=== PATIENT | male | born 1960 | race Caucasian/White ===

== ENCOUNTER 2017-07-22 06:59 | Inpatient (IN) | payer OTHER ==
--- NOTE | 2017-07-22 07:14 | EDPHY ---
HPI/HX/ROS/PE/MDM Narrative: CHIEF COMPLAINT: Chest pain HPI: This patient is a 57 year old male arriving with his complaining of chest pain. At dinner yesterday evening, he began having heartburn-like symptoms after the main course, around 9:00pm. He excused himself to the bathroom, and developed cold sweats and nausea. These symptoms lasted about 30 minutes, then subsided. He had eaten a large meal of steak. When he arrived home later, his discomfort returned and he was unable to sleep. He had intermittent diaphoresis and nausea. Around 5am, he began to feel better, but one hour later, symptoms returned. He has not taken any medications for relief. He denies stomach pain or shortness of breath. His discomfort does not radiate anywhere. He endorses a feeling of "restlessness". He denies vomiting, diarrhea, fever, or other associated symptoms. The patient generally follows up with Dr. Knox, industrial organization manager, due to family cardiac history. About two weeks ago, he was running and had similar symptoms with a heartburn sensation and nausea. He was scheduled to follow up with Dr. Knox next week. His symptoms last night and today feel very similar to those during his exertion two weeks ago, so he presents for evaluation. He does take daily 81mg aspirin. REVIEW OF SYSTEMS: Aside from elements discussed in the HPI, a comprehensive 10-point review of systems was reviewed and is negative. PMH: Mild hyperlipidemia, not medicated. SOCIAL HISTORY: Works as a devops consultant. . at bedside. PHYSICAL EXAM: General:Patient is alert, in no acute distress. ENT:Eyes are normal to inspection. ENT inspection normal. Neck: Normal inspection. Full range of motion. Respiratory:No respiratory distress. Breath sounds normal bilaterally. Cardiovascular: Regular rate and rhythm. Strong peripheral pulses. Normal cap refill. Abdomen:The abdomen is nontender to palpation. There are no peritoneal signs. There are normal bowel sounds. Back: Normal to inspection. No tenderness to palpation. Skin: Normal color. No rash. Warm and dry. Extremities: Normal appearance. Full range of motion. Neuro: Oriented x3. Normal motor function. Normal sensory function. ED Course: 57 y/o male with family history of CAD, followed by Dr. Knox, presents with 10 hour history of intermittent chest pain, nausea, and diaphoresis. Exam unremarkable. Plan for EKG, chest x-ray, labs including CBC, chemistries, Troponin. 07:15 The 12 lead EKG was interpreted by myself. See hard copy and/or "tracemaster" electronic copy for interpretation. Sinus rhythm. T wave inversion in inferior leads. Concern for inferior myocardial ischemia. 07:50 Reviewed chest x-ray. Negative for acute processes. 08:01 Troponin elevated at 0.231. Laboratory studies otherwise unremarkable. Spoke with Dr. Sauer, industrial organization manager. Call schedule changed at 8:00, plan to consult with industrial organization manager adult basic education manager, Dr. Mullins. 08:05 Reassessed patient. Discussed results of EKG, labs. Plan for cardiology consult as above. Administered 325mg PO aspirin. 08:[address] Mullins, industrial organization manager. Plan for cardiac catheterization. Cath team paged by ED staff. 08:40 Dr. Mullins at bedside. 08:48 Per nurse, Dr. Mullins requests initiation of Heparin protocol. Patient transferred to airport maintenance laborer under the care of Dr. Mullins. - Data Points Imaging Results: Imaging Impressions Chest X-Ray 07/22/17 07:07 Impression: Clear lungs. No acute process. Imaging: I viewed and interpreted images myself Laboratory Results: Laboratory Results 07/22/17 07:26 07/22/17 07:26 07/22/1718 07/22/17 07:30 07:26 07:26 WBC 5.92 10^3/uL 10^3/uL (3.80-9.50) RBC 5.13 10^6/uL 10^6/uL (4.40-6.38) Hgb 17.1 g/dL g/dL (13.7-17.5) Hct 47.3 % % (40.0-51.0) MCV 92.2 fL fL (81.5-99.8) MCH 33.3 pg pg (27.9-34.1) MCHC 36.2 g/dL g/dL (32.4-36.7) RDW 12.4 % % (11.5-15.2) Plt Count 202 10^3/uL 10^3/uL (150-400) MPV 9.9 fL fL (8.7-11.7) Neut % (Auto) 63.4 % % (39.3-74.2) Lymph % (Auto) 26.9 % % (15.0-45.0) [place] % (Auto) 7.8 % % (4.5-13.0) Eos % (Auto) 1.0 % % (0.6-7.6) Baso % (Auto) 0.7 % % (0.3-1.7) Nucleat RBC Rel Count 0.0 % % (0.0-0.2) Absolute Neuts (auto) 3.76 10^3/uL 10^3/uL (1.70-6.50) Absolute Lymphs (auto) 1.59 10^3/uL 10^3/uL (1.00-3.00) Absolute Monos (auto) 0.46 10^3/uL 10^3/uL (0.30-0.80) Absolute Eos (auto) 0.06 10^3/uL 10^3/uL (0.03-0.40) Absolute Basos (auto) 0.04 10^3/uL 10^3/uL (0.02-0.10) Absolute Nucleated RBC 0.00 10^3/uL 10^3/uL (0-0.01) Immature Gran % 0.2 % % (0.0-1.1) Immature Gran # 0.01 10^3/uL 10^3/uL (0.00-0.10) PT 13.0 SEC SEC (12.0-15.0) INR 0.96 (0.83-1.16) APTT 32.0 SEC SEC (23.0-38.0) Sodium 144 mEq/L mEq/L (135-145) Potassium 4.1 mEq/L mEq/L (3.5-5.2) Chloride 109 mEq/L mEq/L (97-110) Carbon Dioxide 20 mEq/l L mEq/l (22-31) Anion Gap 15 mEq/L mEq/L (8-16) BUN 13 mg/dL mg/dL (7-23) Creatinine 0.8 mg/dL mg/dL (0.7-1.3) Estimated GFR > 60 Glucose 102 mg/dL H mg/dL (70-100) Calcium 9.2 mg/dL mg/dL (8.5-10.4) Troponin I 0.231 ng/mL H ng/mL (0.000-0.034) Medications Given: Discontinued Medications Aspirin (Aspirin) 324 mg PO EDNOW ONE Stop: 07/22/17 08:17 Last Admin: 07/22/17 08:32 Dose: 324 mg Heparin Sodium (Porcine) (Heparin Injection) 0 unit IVP EDNOW ONE PRN Reason: Protocol Stop: 07/22/17 08:50 Last Admin: 07/22/17 09:22 Dose: 4,800 units Heparin Sodium (Porcine) (Heparin 50 Units/Ml (Premix)) 500 mls @ 0 mls/hr IV EDNOW ONE; Per Protocol PRN Reason: Protocol Stop: 07/22/17 08:50 Last Admin: 07/22/17 09:23 Dose: 500 mls General Time Seen by Provider: 07/22/17 07:07 Initial Vital Signs: Initial Vital Signs Temperature (C) 36.3 C 07/22/17 07:04 Heart Rate 56 L 07/22/17 07:04 Respiratory Rate 17 07/22/17 07:04 Blood Pressure 147/93 H 07/22/17 07:04 O2 Sat (%) 96 07/22/17 07:04 O2 Delivery Mode Nasal Cannula O2 (L/minute) 1 Allergies/Adverse Reactions: No Known Allergies Allergy (Unverified 07/22/17 07:01) Home Medications: Medication Instructions Recorded Aspirin [Aspirin 81mg (*)] 81 mg PO DAILY 07/22/17 Departure - Departure Disposition: [facility] Inpatient Acute Clinical Impression: NSTEMI (non-ST elevated myocardial infarction) Condition: Fair Referrals: Johann Dominguez MD [Primary Care Provider] - As per Instructions Report Scribed for: Hector Samson Report Scribed by: Bonita Shields Date of Report: 07/22/17 Time of Report: 07:25 Physician Review and Approval Statement: Portions of this note were transcribed by an ED scribe. I personally performed the history, physical exam, and medical decision making; and confirm the accuracy of the information in the transcribed note.
--- NOTE | 2017-07-22 07:16 | CPEKG ---
Heart Rate: 52 RR Interval: 1154 P-R Interval: 192 QRSD Interval: 108 QT Interval: 484 QTC Interval: 451 P [place]: 44 QRS [place]: 29 T Wave [place]: -26 EKG Severity - ABNORMAL ECG - EKG Impression: SINUS RHYTHM EKG Impression: ABNORMAL T, CONSIDER ISCHEMIA, INFERIOR LEADS Electronically Signed By: Christiano Haddad 26-Jul-2017 17:26:38
[2017-07-22 07:31] LABS: PLATELET COUNT 202 10^3/uL (150-400)
[2017-07-22] MEDS ORDERED: ASPIRIN 81 MG CHEWABLE TAB ONE (08:14)
[2017-07-22] MEDS ORDERED: ASPIRIN 81 MG CHEWABLE TAB PO ONE (08:16)
[2017-07-22] MEDS ORDERED: HEPARIN/DEXTROSE 500 ML IV ONE (08:49)
[2017-07-22] MEDS ORDERED: HEPARIN 10,000 UNIT/10 ML MDV (1,000 UNIT/ML) IVP ONE (08:49)
[2017-07-22 09:11] LABS: INR 0.96 (0.83-1.16)
[2017-07-22] MEDS ORDERED: LIDOCAINE 1% 300 MG/30 ML SDV ONE (09:12)
[2017-07-22] MEDS ORDERED: fentaNYL 100 MCG/2 ML INJ ONE (09:13)
[2017-07-22] MEDS ORDERED: MIDAZOLAM 2 MG/2 ML VIAL ONE ×3 (09:13→10:19)
[2017-07-22] MEDS ORDERED: IOPAMIDOL (ISOVUE-370) 150 ML BTL IV ONE ×2 (09:13→10:09)
[2017-07-22] MEDS ORDERED: HEPARIN 10,000 UNIT/10 ML MDV (1,000 UNIT/ML) ONE (09:58)
[2017-07-22] MEDS ORDERED: PRASUGREL HCL 10 MG TAB ONE (10:22)
[2017-07-22] MEDS ORDERED: NITROGLYCERIN 1,500 MCG/15 ML VIAL MISC ONE (10:30)
[2017-07-22] MEDS ORDERED: ONDANSETRON 4 MG/2 ML VIAL IVP PRN (10:46)
[2017-07-22] MEDS ORDERED: ATROPINE SULFATE 1 MG/10 ML SYR IVP PRN (10:46)
[2017-07-22] MEDS ORDERED: NITROGLYCERIN 0.4 MG BTL SL PRN (10:46)
[2017-07-22] MEDS ORDERED: TEMAZEPAM 15 MG CAP PO PRN (10:46)
[2017-07-22] MEDS ORDERED: LORazepam 2 MG/ML INJ IVP PRN (10:46)
[2017-07-22] MEDS ORDERED: PRASUGREL HCL 10 MG TAB PO ONE (10:46)
--- NOTE | 2017-07-22 10:56 | PDCTREPORT ---
Cardiothoracic Procedure Rpt Cardiothoracic Procedure Report: Procedure: Therapeutic angiogram with PCI and stenting of the mid right coronary artery. Indications: 57-year-old male non-Q-wave myocardial infarction. Narrative: My partner, Dr. Mullins, perform diagnostic angiogram revealing critical RCA stenosis. I am called in to perform PCI. On my arrival patient is pain-free. Stable hemodynamics. I reviewed diagnostic angiograms revealing critical mid RCA stenosis. Peripheral angiogram reveals the arteriotomy to be very close, inferior to the infera gastric artery. Left ventricular function is normal with mild inferior hypokinesis. Filling pressures are normal. After reviewing diagnostic angiograms elected to proceed with PCI. A CT was performed as the patient had been administered heparin prior to my arrival. ACT was subtherapeutic at 140. Patient was administered a 1000 units of heparin. Therapeutic ACT was conformed 15 minutes after administration. Patient was administered Effient 60 mg orally prior to intervention. Using a 6 Georgian JR4 guiding catheter the right coronary selectively intubated. Guiding shots were performed. Q CA was performed. Using a 0.014 luge wire RCA stenosis was crossed. It was primarily stented with a 3.5 x 12 mm synergy stent. It was post dilated with a 4 mm quantum balloon. Repeat angiograms revealed step-up with KI grade 3 flow. Patient was administered intracoronary nitroglycerin. Final orthogonal angiograms were obtained. Wire was withdrawn. The sheath was secured and the patient be taken to ICU. Sheaths will be pulled manually. Careful attention to the pull as the arteriotomy is very close to the in for gastric artery and I am a bit concerned about the possibility of retroperitoneal entry. Results were reviewed with Dr. Mullins. He was speaking to the patient's . Final diagnosis: Non-Q-wave myocardial infarction status post successful PCI and stenting of the right coronary artery with a 3.5 x 12 mm synergy stent. Patient Problems: Problems Problem Status Onset NSTEMI (non-ST elevated myocardial infarction) Acute
[2017-07-22] MEDS ORDERED: NS 1,000 ML IV SCH (11:00)
--- NOTE | 2017-07-22 11:29 | CPIP ---
[f rep st] INVASIVE CARDIAC PROCEDURE PROCEDURES: 1. Left heart catheterization. 2. Left ventriculogram. 3. Right and left coronary arteriograms. The patient had the above procedures without any complications. Indication was acute non ST-segment elevation myocardial infarction. The patient gave informed consent and was willing to proceed with the procedure. Using ultrasound-guided percutaneous stick, the patient had a coronary angiogram via the right femora l artery without complications. FINDINGS: ANGIOGRAPHY: 1. Left main coronary artery normal. 2. Left anterior descending artery has multiple irregularities present with 10% stenosis in multiple places in the mid section. 3. The 1st diagonal branch has intimal disease present. The circumflex coronary artery has intimal disease present. There is no high-grade stenosis on the branches of the left main coronary artery. 4. The right coronary artery is dominant, a large vessel. And has a 99% mid stenosis. LEFT VENTRICULOGRAM: 1. Normal left ventricular systolic function. 2. Left ventricular wall motion abnormalities are absent. 3. No significant mitral regurgitation. LEFT HEART CATHETERIZATION: Left ventricular end-diastolic pressure 17 mmHg. No aortic stenosis. CONCLUSION: The patient has severe 1 vessel coronary disease with intimal disease present in the [facility] er vessels. For PCI. Complications were none. Results discussed with the patient's . /[id number]/MODL
--- NOTE | 2017-07-22 11:39 | GHP ---
[f rep st] HISTORY AND PHYSICAL DATE OF ADMISSION: 07/22/2017 HISTORY OF PRESENT ILLNESS: The patient is admitted to the hospital with anterior chest discomfort. He has a family history of coronary artery disease, dyslipidemia and a high calcium score. Two years ago he had a nuclear stress test, and it was negative. He did not want to take statins and has been working on his cholesterol with nonpharmacologic measures since that time. He has been arianne ing aspirin daily. Two weeks ago he was running and he always does that at 7 in the morning when he can. He ran up [place] and he was laboring more than normal on this run, and at the top he had chest pain 4/10. He stopped and he walked his way down. He had nausea, felt not very well. He has had several episod es of not feeling very well since that time and has not been exercising hard since that time. He has been doing sometimes 35-40 minutes of exercise, what he calls not strenuous, and has not had recurre nt chest pain. Last night at dinner he finished the main course at 9 o'clock at night and he develop ed chest pain and cold sweats. The pain was 7/10. It felt intense. It felt like heartburn. It was in the center of his chest. It was not heavy. It was not tight. He had no arm pain or jaw pain. He was kind of cold, sweaty and clammy. Thirty minutes later it was gone, so he went back to the tab le, ate some more, and when he went home at 11 to 11:30 at night he had chest pain. He could not sle ep through the night well and he had cold sweats, and his says he felt cold. He was cold and cl camilo. He was awake all night. About 4 o'clock in the morning, he woke up with 8/10 chest discomfort that got better by 5 o'clock in the morning. At 7 in the morning, they were not sure what they were dealing with, so they decided to come to the emergency room. At that time, his pain was 3/10 and hi s pain went away. He was given aspirin, and he had no further pain. He has not had this pain before 2 weeks ago. Cardiac risk factors are positive for family history of premature coronary disease, hyperlipidemia, a nd known coronary disease. Cardiac risk factors are negative for hypertension, hyperuricemia, diabetes mellitus, smoking history , obesity. PAST MEDICAL HISTORY: FAMILY HISTORY: His father at 57 of a myocardial infarction. He had a paternal grandfather who at 53 of a myocardial infarction. REVIEW OF SYSTEMS: A 10-point review of systems is negative, except as noted above. MEDICATIONS: Aspirin. He takes no other medications. SOCIAL HISTORY: He was born in [place], [place], but grew up in [place], [place]. He has done a lot of offshore sailing and loves boats, anything from 10 feet to 50 feet. He lives wi th his . They met in [place]. He lives with his , who works here in town. He and his met in [place], [place]. 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 They have 3 childr en who are all healthy. He does not smoke. He does not drink significant amounts of alcohol. He exercises very hard on a re gular basis and keeps himself in very good shape. Normally, he can run up [employer] without any trouble and does that often. PHYSICAL EXAMINATION: VITAL SIGNS: Blood pressure 110/70, heart rate 66, respiratory rate 12. He i s afebrile. HEENT: Pupils equal and reactive. Mucous membranes of the mouth moist. NECK: Supple. CARDIOVASCULAR: Reveals S1, S2. Soft systolic murmur left sternal border. No diastolic murmur. No S3, S4. No rub. PULMONARY: Reveals rhonchi bilaterally. No rales, wheezing, or dullness. CVA: No tenderness. ABDOMEN: Soft, nontender, without masses. EXTREMITIES: No edema, inflammation or u lceration. NEUROLOGIC: Cranial nerves 2 through 12 grossly normal. Motor and sensory intact. PSYC HIATRIC: No obvious anxiety or depression. LABS: His troponin is elevated. His EKG shows T-wave inversions inferiorly. ASSESSMENT AND PLAN: 1. Acute non-ST segment elevation myocardial infarction. 2. Dyslipidemia. 3. Family history of premature coronary disease. 4. The patient is having an acute myocardial infarction. There is no ST segment elevation. He is going to go to the electrical laboratory technician. I have gone over with him the risks of the procedure including st roke, , limb loss, renal failure, myocardial infarction, infection, bleeding, etc. I have gone over the options, which include getting 2nd opinion, noninvasive testing, medical therapy , hospitalization, observation, medications, doing nothing or nontraditional therapies; and he would like to proceed with this approach at this time. This is certainly by far the best approach, and he is agreeable to this. I started him on intravenous heparin in the emergency room while we are waiting for the electrical laboratory technician brenda pineda to come in. We called the electrical laboratory technician as soon as I heard about the patient, and they are on their way in to take care of him. He is hemodynamically stable right now. He is not having pain. He has had his aspirin. I am not gi ving him his beta alyssa at this point in time because I do not want to drop his pressure and he is stable. We will be starting statins and will observe him very carefully and see what we need to do next. All his and his 's questions have been answered; and we will watch him very closely long-term. There is nothing to suggest disease of the great vessels. There is nothing to suggest other possible causes of this pain syndrome right now, such as paraesopha geal hernia, major gastrointestinal pathology such as a severe gallbladder problem, significant ulcer , early gastrointestinal bleed, or early acute abdomen. There is nothing to suggest pulmonary embolic disease as cause of his current situation or at least c linical symptoms. With his troponin elevated, an acute coronary syndrome is by far the most likely t uzma with his EKG changes, but we will keep in mind other possibilities. As I said, there is nothing to suggest disease of the great vessels. His pulses are full and equal. All his and his 's questions have been answered, and we will proceed. /[id number]/MODL
--- NOTE | 2017-07-22 11:51 | CPEKG ---
Heart Rate: 49 RR Interval: 1224 P-R Interval: 200 QRSD Interval: 100 QT Interval: 496 QTC Interval: 448 P [place]: 49 QRS [place]: 58 T Wave [place]: 14 EKG Severity - BORDERLINE ECG - EKG Impression: SINUS BRADYCARDIA EKG Impression: BORDERLINE INFERIOR Q WAVES Electronically Signed By: Christiano Haddad 24-Jul-2017 08:03:52
[2017-07-22 14:03] LABS: CREATINE KINASE 49 IU/L (0-224)
[2017-07-22] MEDS: ATORVASTATIN CALCIUM 40 MG TAB PO SCH (14:30)
[2017-07-22 15:55] LABS: CREATINE KINASE 57 IU/L (0-224)
[2017-07-22 17:56] LABS: CREATINE KINASE 58 IU/L (0-224)
[2017-07-22 20:25] LABS: CREATINE KINASE 56 IU/L (0-224)
[2017-07-22] MEDS ORDERED: BISOPROLOL FUMARATE 5 MG TAB PO SCH (22:00)
[2017-07-23 04:27] LABS: PLATELET COUNT 167 10^3/uL (150-400)
[2017-07-23 04:55] LABS: CREATINE KINASE 48 IU/L (0-224)
[2017-07-23] MEDS ORDERED: ASPIRIN EC 325 MG TAB PO SCH (09:00)
[2017-07-23] MEDS ORDERED: LISINOPRIL 2.5 MG TAB PO SCH (09:00)
[2017-07-23] MEDS ORDERED: PRASUGREL HCL 10 MG TAB PO SCH (09:00)
[2017-07-23 09:40] VITALS: BP 135/78; PULSE 58; RESP 20; TEMP 98.4; O2SAT 96
[2017-07-23] MEDS: ATORVASTATIN CALCIUM 40 MG TAB PO SCH (09:58)
--- NOTE | 2017-07-23 10:07 | GDS ---
[f rep st] DISCHARGE SUMMARY DIAGNOSES: 1. Non ST-segment elevation myocardial infarction. 2. Dyslipidemia. 3. Family history of premature coronary disease. HOSPITAL COURSE: Dinh came to the hospital after having several weeks of anterior chest discomfort. The first time occurred with exercise. He is a very fit man who can usually run up [employer] and on a run several weeks ago he had to stop and had to walk back down. His pain was 4/10. He had nausea, was clammy. He has been taking it easy since that time. The night before admission, the adm ission was yesterday, on a Monday, the Monday night before, he was at a dinner constitution party at 9 o'clock. He had chest pain, cold sweats, nausea. It went away in 30 minutes. The pain was 7/10. He went ho me at 11 o'clock at night, could not sleep, was having cold sweats, was clammy, was awake all night a nd sweating. At 4 in the morning his pain was 8/10. It got better by 5 in the morning, 3/10 at 7:00 am and he came to the emergency room. We brought him to the labor trainer with an elevated troponin, and T-wave inversions inferiorly. On coronary angiography, he had a tight right mid dominant vessel over 95% stenosed and he had intima l disease in the circumflex and LAD and probably multiple segments of 10% stenosis in the mid LAD. María salguero had a normal left ventricular systolic function with no regional wall motion abnormality. He went on to receive therapeutic angiography with PCI and stenting of the mid right coronary artery. On peripheral angiography he had an arteriotomy to be close but inferior to the infragastric artery . Filling pressures were normal and the patient received a primary stent with a 3.5 x 12 mm Synergy stent that was post dilated with a 4 mm Quantum balloon. The patient tolerated this procedure very well. He is doing great today and is ready for discharge. Discussed at length diet, exercise, activity. He is not sure he wants to cardiac rehab, but he has been referred to the cardiac rehab program and they will be in touch with him presumably. He is being discharged on aspirin 325 a day, atorvastatin 40 a day, bisoprolol 2.5 mg at bedtime, lis inopril 2.5 mg at bedtime and prasugrel 10 mg daily. I will see him in followup this week. All questions have been answered. He is up and about. He is going to walk around for another 2 hours in the hospital before discharge and if he has any problems, we will postpone the discharge as needed. He has had no significant arrh ythmias. His groin is excellent. /[id number]/MODL
--- NOTE | 2017-07-23 10:23 | ECHO ---
[email or web address] [address] [address] Main: [phone] Fax: Transthoracic Echocardiogram Name: ANGELICA FRIEDMAN MR#: [id number] Study Date: 07/23/2017 Study Time: 07:41 AM Date of : 1960 Age: 57 year(s) Height: 180.3 cm (71 in.) Weight: 86.18 kg (190 lb.) BSA: 2.06 m2 Gender: Male Examination: Echo Indication: Post IMI/evaluate mitral valve Image Quality: Contrast: Requested by: Fidencio New BP: 141 mmHg/87 mmHg Heart Rate: Rhythm: Indication: Post IMI/evaluate mitral valve Procedure Staff Aitchbone Breaker: Kelsey Martino [facility] Reading Physician: Reid Osman Requesting Provider: Conclusions: Normal global systolic LV function. The ejection fraction is estimated to be 65-70 %. No regional wall motion abnormality. Posterior mitral valve leaflet prolapse.. Trivial tricuspid valve regurgitation. There is no previous echocardiogram for comparison. Measurements: Chambers Valvular Assessment AV/MV Valvular Assessment TV/PV Normal Normal Normal Name Value Range Name Value Range Name Value Range Ao Colleen (MM): 4.2 cm (2.2 cm-3.7 AV Vmax: 1.17 m/s (1 m/s-1.7 cm) m/s) IVSd (2D): 1.0 cm (0.6 cm-1.1 AV maxP mmHg ( - ) cm) MV E Vmax: 0.48 m/s ( - ) LVDd (2D): 5.4 cm (4.2 cm-5.9 MV A Vmax: 0.40 m/s ( - ) cm) MV E/A: 1.20 ( - ) LVDs (2D): 3.5 cm (2.1 cm-4 cm) LVPWd (2D): 1.0 cm (0.6 cm-1 cm) LVEF (MOD4): 67 % (>=55 %) EF Range: 65-70 % Continued Measurements: Chambers Valvular Assessment AV/MV Name Value Name Value LADs: 4.4 cm MV E/E' Septal: 9.10 LADs Lon.0 cm MV E/E' Lateral: 6.20 Patient: ANGELICA FRIEDMAN Study Date: 07/23/2017 Page 1 of 2 07:41 AM LA Area: 20.9 cm2 Additional Vessels Name Value Ao Ascendin.1 cm Findings: Left Ventricle: Normal size left ventricle. No LV hypertrophy. Normal global systolic LV function. The ejection fraction is estimated to be 65-70 %. No regional wall motion abnormality. Normal diastolic LV function. Right Ventricle: Normal size right ventricle. Left Atrium: The left atirum is borderline dilated. Right Atrium: The right atrium is normal in size. Mitral Valve: Mild mitral valve regurgitation is present. Posterior mitral valve leaflet prolapse.. Aortic Valve: The aortic valve is normal in appearance and function. Tricuspid Valve: The tricuspid valve is normal in appearance and function. Trivial tricuspid valve regurgitation. Pulmonic Valve: The pulmonic valve is normal in appearance and function. Aorta: Borderline aortic root dilatation. Borderline ascending aortic dilatation.. The aorta is normal. Pericardium: No pericardial effusion. (No Signature Object) Patient: ANGELICA FRIEDMAN Study Date: 07/23/2017 Page 2 of 2 07:41 AM [id number]
--- NOTE | 2017-07-23 10:57 | ASDISCHSUM ---
Discharge Information Plan Status:Home with No Needs Medically Cleared to Leave:07/22/2017 Discharge Date:07/23/2017 10:30 AM CM D/C Disposition:Home, Routine, Self-Care ADT D/C Disposition:Home, Routine, Self-Care Projected Discharge Date:07/23/2017 12:00 AM Transportation at D/C:Family Discharge Delay Reason: Follow-Up Date:07/23/2017 12:00 AM Discharge Slot: Final Diagnosis:NSTEMI Placement Information Patient Contact Information Contact Name:NATHANIEL Relationship: Address:[address] Work Phone: City:[facility] Phone: [facility]/Zip Code:[place] [address] Email: Financial Information Financial Class:HMO and PPO Plans Primary Plan Desc:HMO [place] [employer] Primary Plan Number:[id number] Secondary Plan Desc: Secondary Plan Number: Assessment Information Case Management Discharge Plan Note Case Management Discharge Discharge Order Complete? Answers: Yes Patient to Obtain Answers: Independently Medications Transportation Arranged Answers: Family/Friends Transport will Pick (Date 07/23/2017 12:00 AM & Time) Family Notified Answers: Yes Notes: Family to transport Discharge Comments Notes: 57 year old male admitted for CP-NSTEMI. Went to [facility]. DC with medications. No other needs at this time. Date Signed: 07/23/2017 09:59 AM Electronically Signed By:Gely Anguiano LCSW Intervention Information
== END 2017-07-23 10:30 | disposition home or self-care (01) | DRG 247 ==
LOC: F2N 11:13
PROVIDERS: ADMIT Internal Medicine; ATTEND Internal Medicine
PROC: 027034Z Dilation of Coronary Artery, One Artery with Drug-eluting Intraluminal Device, Percutaneous Approach (ICD-10-PCS; principal; 2017-07-22)
PROC: B2151ZZ Fluoroscopy of Left Heart using Low Osmolar Contrast (ICD-10-PCS; 2017-07-22)
PROC: 4A023N7 Measurement of Cardiac Sampling and Pressure, Left Heart, Percutaneous Approach (ICD-10-PCS; 2017-07-22)
PROC: B2111ZZ Fluoroscopy of Multiple Coronary Arteries using Low Osmolar Contrast (ICD-10-PCS; 2017-07-22)
DX: I21.4 Non-ST elevation (NSTEMI) myocardial infarction (principal); I25.10 Atherosclerotic heart disease of native coronary artery without angina pectoris; E78.5 Hyperlipidemia, unspecified; Z79.82 Long term (current) use of aspirin; Z82.49 Family history of ischemic heart disease and other diseases of the circulatory system
CPT/HCPCS: 96374; C1725; C1769; C1874; C1887; C9606; J0461; J1644; J2250; J3010; Q9967